=== PATIENT | female | born 1935 | race Two or more races ===

== ENCOUNTER 2021-04-14 12:12 | Inpatient (IN) | payer MEDICARE, MEDICAID ==
[~2021-04-14] VITALS: Ht 152.4 cm; Wt 57.9 kg
[2021-04-14 12:53] LABS: Basophils # (auto) 0 10 ^3/uL (0-0.2); Basophils % (auto) 0.3 % (0.0-2.0); Eosinophils # (auto) 0.1 10 ^3/uL (0-0.8); Eosinophils % (auto) 0.5 % (0.0-7.0); Hematocrit 40.5 % (36.0-46.0); Hemoglobin 14.4 g/dL (12.2-16.2); Lymphocytes # (auto) 0.9 10 ^3/uL (0.4-5.4); Lymphocytes % (auto) 7.2 % (10.0-50.0); Mean Corpuscular Hemoglobin 32.2 pg (28.0-32.0); Mean Corpuscular Hgb Conc. 35.4 g/dL (32.0-36.0); Monocytes # (auto) 0.7 10 ^3/uL (0-1.3); Monocytes % (auto) 5.8 % (0.0-12.0); Neutrophils # (auto) 10.6 10 ^3/uL (1.6-8.6); Neutrophils % (auto) 86.2 % (37.0-80.0); Nucleated Red Blood Cells % 0.1 %; Red Blood Cells 4.45 10^6/uL (4.0-5.20); Red Cell Distribution Width 13.2 % (11.8-14.3); White Blood Cell 12.3 10^3/uL (4.4-10.8)
[2021-04-14 13:08] LABS: Albumin 3.5 g/dL (3.4-5.0); BUN/Creatinine Ratio 29.9; Calcium 8.6 mg/dL (8.5-10.1); Magnesium 2.2 mg/dL (1.6-2.6); Potassium 3.5 mmol/L (3.5-5.1)
[2021-04-14 13:11] LABS: Bilirubin, Total 1.2 mg/dL (0.2-1.0); Total Protein 7.6 g/dL (6.4-8.2)
[2021-04-14 13:46] LABS: INR 1.08 (0.9-1.15); Partial Thromboplastin Time 28.7 sec (23.0-31.2)
[2021-04-14] MEDS ORDERED: MORPHINE SULFATE INJECTION 2 MG/ML SYRG IV PRN (17:15)
[2021-04-14] MEDS ORDERED: ACETAMINOPHEN 500 MG TAB PO PRN (17:15)
[2021-04-14] MEDS ORDERED: NITROGLYCERIN 0.4 MG SL TAB SL PRN (17:15)
[2021-04-14] MEDS ORDERED: DOCUSATE SOD 100 MG CAP PO PRN (17:15)
[2021-04-14] MEDS: levoFLOXacin 500MG 100 ML IV SCH (18:03)
[2021-04-14 18:52] LABS: Urine Bacteria NONE SEEN /hpf (None Seen); Urine Blood Negative /uL (Negative); Urine Hyaline Cast MOD /lpf (0 - 2); Urine Mucus FEW (None Seen); Urine Specific Gravity 1.021 (1.001-1.035); Urine WBC 50 /hpf (0 - 5)
[2021-04-14] MEDS: ONDANSETRON HCL 4 MG/2 ML VIAL IV PRN (19:39)
[2021-04-14] MEDS: MORPHINE SULFATE INJECTION 2 MG/ML SYRG IV PRN (19:40)
[2021-04-14 20:23] VITALS: BP 138/66
[2021-04-14] MEDS ORDERED: MULT-1018 PO (20:59)
[2021-04-14] MEDS ORDERED: TRAM50TA2 PO (20:59)
[2021-04-14] MEDS ORDERED: CHOL500021 OR (20:59)
[2021-04-14] MEDS ORDERED: AMLO-489 PO (20:59)
[2021-04-14] MEDS ORDERED: ASPI325T4 PO (20:59)
[2021-04-14 22:00] VITALS: BP 138/66
[2021-04-15] MEDS: MORPHINE SULFATE INJECTION 2 MG/ML SYRG IV PRN ×2 (04:02→10:47)
[2021-04-15] MEDS: ONDANSETRON HCL 4 MG/2 ML VIAL IV PRN ×2 (04:02→10:47)
[2021-04-15 05:00] VITALS: BP 144/69
[2021-04-15 06:13] LABS: Basophils # (auto) 0 10 ^3/uL (0-0.2); Basophils % (auto) 0.3 % (0.0-2.0); Eosinophils # (auto) 0.3 10 ^3/uL (0-0.8); Eosinophils % (auto) 2.5 % (0.0-7.0); Hematocrit 37.3 % (36.0-46.0); Hemoglobin 13.1 g/dL (12.2-16.2); Lymphocytes # (auto) 1.4 10 ^3/uL (0.4-5.4); Lymphocytes % (auto) 13.6 % (10.0-50.0); Mean Corpuscular Hemoglobin 32.2 pg (28.0-32.0); Mean Corpuscular Hgb Conc. 35.1 g/dL (32.0-36.0); Mean Corpuscular Volume 91.9 fL (80.0-100.0); Monocytes # (auto) 0.8 10 ^3/uL (0-1.3); Monocytes % (auto) 7.8 % (0.0-12.0); Neutrophils # (auto) 8.1 10 ^3/uL (1.6-8.6); Neutrophils % (auto) 75.8 % (37.0-80.0); Nucleated Red Blood Cells % 0.1 %; Red Blood Cells 4.06 10^6/uL (4.0-5.20); Red Cell Distribution Width 13.5 % (11.8-14.3); White Blood Cell 10.7 10^3/uL (4.4-10.8)
[2021-04-15 06:37] LABS: Potassium 3.8 mmol/L (3.5-5.1)
[2021-04-15 06:44] LABS: BUN/Creatinine Ratio 31.1; Bilirubin, Total 0.8 mg/dL (0.2-1.0); Calcium 8.7 mg/dL (8.5-10.1); Total Protein 6.7 g/dL (6.4-8.2)
[2021-04-15 08:00] VITALS: BP 130/61
[2021-04-15 08:36] VITALS: BP 130/61
[2021-04-15] MEDS: levoFLOXacin 500MG 100 ML IV SCH (10:14)
[2021-04-15] MEDS: FAMOTIDINE 20 MG TAB PO SCH (10:15)
[2021-04-15] MEDS: amLODIPine BESYLATE 5 MG TAB PO SCH (10:15)
[2021-04-15] MEDS: CHOLECALCIFEROL (VITD3) 1,000UNIT=25mCg TAB PO SCH (10:16)
[2021-04-15 12:38] VITALS: BP 125/59
[2021-04-15] MEDS: HYDROcodone-ACET 5/325MG TAB PO PRN ×2 (14:05→23:36)
[2021-04-15 17:24] VITALS: BP 133/65
[2021-04-15 21:35] VITALS: BP_SYST 114; BP_SYST 130; BP_DIAS 70; BP_DIAS 73
[2021-04-16 05:30] VITALS: BP 129/63
[2021-04-16 08:30] VITALS: BP 138/63
[2021-04-16] MEDS: CHOLECALCIFEROL (VITD3) 1,000UNIT=25mCg TAB PO SCH (09:22)
[2021-04-16] MEDS: FAMOTIDINE 20 MG TAB PO SCH (09:22)
[2021-04-16] MEDS: amLODIPine BESYLATE 5 MG TAB PO SCH (09:22)
[2021-04-16] MEDS ORDERED: levoFLOXacin 250MG 50 ML IV SCH (10:00)
[2021-04-16] MEDS: HYDROcodone-ACET 5/325MG TAB PO PRN ×2 (10:23→20:17)
[2021-04-16 12:30] VITALS: BP 133/66
[2021-04-16] MEDS ORDERED: MORPHINE SULFATE INJECTION 2 MG/ML SYRG IV PRN (15:30)
[2021-04-16 17:00] VITALS: BP 130/57
[2021-04-16 22:00] VITALS: BP 127/57
[2021-04-17 05:00] VITALS: BP 136/65
[2021-04-17 09:00] VITALS: BP 145/65
[2021-04-17] MEDS: FAMOTIDINE 20 MG TAB PO SCH (09:29)
[2021-04-17] MEDS: CHOLECALCIFEROL (VITD3) 1,000UNIT=25mCg TAB PO SCH (09:29)
[2021-04-17] MEDS ORDERED: levoFLOXacin 500 MG TAB PO SCH (10:00)
[2021-04-17] MEDS: amLODIPine BESYLATE 5 MG TAB PO SCH (10:00)
[2021-04-17] MEDS ORDERED: levoFLOXacin 250 MG TAB PO SCH (10:00)
[2021-04-17 13:00] VITALS: BP 135/61
[2021-04-17 14:12] VITALS: BP 145/65
[2021-04-17] MEDS: HYDROcodone-ACET 5/325MG TAB PO PRN (16:07)
[2021-04-17 17:00] VITALS: BP 139/61
== END 2021-04-17 17:50 | DRG 341 ==
LOC: EDBD 12:12 → ER 12:33 → OVERFLOW 17:15 → WEST WING 20:07
PROVIDERS: ADMIT Nurse Practitioner Acute Care; ATTEND Internal Medicine
DX: S32.592A Other specified fracture of left pubis, initial encounter for closed fracture (principal); M80.00XA Age-related osteoporosis with current pathological fracture, unspecified site, initial encounter for fracture; N39.0 Urinary tract infection, site not specified; E78.00 Pure hypercholesterolemia, unspecified; S32.512A Fracture of superior rim of left pubis, initial encounter for closed fracture; E78.5 Hyperlipidemia, unspecified; S32.302A Unspecified fracture of left ilium, initial encounter for closed fracture; I10 Essential (primary) hypertension; I25.10 Atherosclerotic heart disease of native coronary artery without angina pectoris; M85.80 Other specified disorders of bone density and structure, unspecified site; Z20.822 Contact with and (suspected) exposure to COVID-19; Z96.652 Presence of left artificial knee joint; R32 Unspecified urinary incontinence; Z96.643 Presence of artificial hip joint, bilateral; W01.0XXA Fall on same level from slipping, tripping and stumbling without subsequent striking against object, initial encounter; Y93.89 Activity, other specified; Y92.89 Other specified places as the place of occurrence of the external cause; Y99.8 Other external cause status; Z88.0 Allergy status to penicillin; Z86.73 Personal history of transient ischemic attack (TIA), and cerebral infarction without residual deficits; Z95.5 Presence of coronary angioplasty implant and graft; Z91.81 History of falling
CPT/HCPCS: 36415; 70450; 71045; 72192; 73502; 80053; 81001; 83735; 85025; 85049; 85610; 85730; 87040; 87086; 87426; 93005; 96365; 96375; 97110; 97116; 97530; G0378; J1956; J2405